=== PATIENT | male | born 1970 | race Caucasian/White ===

== ENCOUNTER 2020-01-03 10:03 | Emergency (ER) | payer OTHER ==
[~2020-01-03] VITALS: Ht 190.5 cm; Wt 154.5 kg
--- NOTE | 2020-01-03 11:40 | RAD ---
Examination: RIBS LEFT AND PA CHEST History: Fell, left-sided rib pain. Comparison/Correlation: None Findings: PA view of the chest was obtained. Initial 4 images of the left ribs were also provided. Heart size and pulmonary vasculature normal. No infiltrate or significant pleural effusion. No pneumothorax. Left ribs are intact with no fracture or bony destructive findings. Impression: No infiltrate. Left ribs are intact. Electronically signed by: Alexandru Matthew MD (01/03/2020 11:37 AM) [id number]
[2020-01-03 11:41] VITALS: BP 156/107
--- NOTE | 2020-01-03 11:42 | RAD ---
Examination: ELBOW LEFT 3V History: Fall, pain Comparison/Correlation: None Findings: Total of 3 images of the left elbow were obtained. Positioning is suboptimal due to the patient's condition. True 90 degree flexed lateral view was not provided. No findings to suggest elbow joint effusion however. No fat-pad displacement delineated. No significant degenerative change with patient's age. Bone mineralization is adequate in appearance. Impression: No fracture or bone destruction. Consider interval follow-up if fracture is a persistent concern. Electronically signed by: Alexandru Matthew MD (01/03/2020 11:38 AM) [id number]
[2020-01-03] MEDS ORDERED: NAPROXEN 500 MG TABLET PO STA (11:48)
[2020-01-03] MEDS ORDERED: diazePAM 5 MG TABLET PO ONE (12:00)
[2020-01-03] MEDS ORDERED: HYDROcodone/APAP 5/325MG 1 TAB TABLET PO ONE (12:00)
[2020-01-03] MEDS ORDERED: DIPHTH,PERTUSS(ACELL),TET TOX 0.5 ML DISP.SYRIN. VAX IM ONE (12:00)
[2020-01-03] MEDS ORDERED: DICL50TA2 PO (12:11)
[2020-01-03] MEDS ORDERED: CYCL10TA2 PO (12:11)
[2020-01-03] MEDS ORDERED: HYDR-3164 PO (12:11)
--- NOTE | 2020-01-03 12:12 | PHYS DOC ---
Past Medical History Past Medical History: No Pertinent History Past Surgical History: No Surgical History Smoking Status: Never Smoker Alcohol Use: None Adult General Chief Complaint Chief Complaint: RIB PAIN HPI HPI Patient is a 49 year old male with no significant medical history who presents to the ED today complaining of 10 out of 10 sharp constant posterior rib pain that began after falling. Patient reports working for [employer], he states he was going down some steps when he slipped on ice on the last step and fell hitting his back ribs on the staircase. Patient denies any loss of consciousness, denies hitting his head on the ground. Denies any neck pain or back pain. Review of Systems Review of Systems Constitutional: Denies fever or chills [] Eyes: Denies change in visual acuity, redness, or eye pain [] HENT: Denies nasal congestion or sore throat [] Respiratory: Reports left posterior rib pain. Denies cough or shortness of breath [] Cardiovascular: No additional information not addressed in HPI [] GI: Denies abdominal pain, nausea, vomiting, bloody stools or diarrhea [] : Denies dysuria or hematuria [] Musculoskeletal: Reports left elbow pain. Denies back pain Integument: Denies rash or skin lesions [] Neurologic: Denies headache, focal weakness or sensory changes [] All other systems were reviewed and found to be within normal limits, except as documented in this note. Current Medications Current Medications Current Medications Medications (Trade) Dose Ordered Sig/[facility] Start Time Stop Time Status Last Admin Dose Admin Acetaminophen/ Hydrocodone Bitart (Lortab 5/325) 2 tab 1X ONCE 01/03/20 12:00 2 12:01 UNV Diazepam (Valium) 5 mg 1X ONCE 01/03/20 12:00 01/03/20 12:01 UNV Diphtheria/ Tetanus/Acell Pertussis (Boostrix) 0.5 ml ONCE ONCE 01/03/20 12:00 01/03/20 12:01 UNV Naproxen (Naprosyn) 500 mg 1X STAT 01/03/20 11:48 01/03/20 11:49 UNV Physical Exam Physical Exam Constitutional: Well developed, well nourished, no acute distress, non-toxic appearance. [] HENT: Normocephalic, atraumatic, bilateral external ears normal, oropharynx moist, no oral exudates, nose normal. [] Eyes: PERRLA, EOMI, conjunctiva normal, no discharge. [] Neck: Normal range of motion, no tenderness, supple, no stridor. [] Cardiovascular:Heart rate regular rhythm, no murmur [] Lungs & Thorax: Bruising noted on the left posterior mid ribs with tenderness to the region. Bilateral breath sounds clear to auscultation [] Abdomen: Bowel sounds normal, soft, no tenderness, no masses, no pulsatile masses. [] Skin: Warm, dry, no erythema, no rash. [] Back: No tenderness, no CVA tenderness. [] Extremities: Left elbow with no obvious deformity. Bruising noted on the left olecranon process. Full range of motion to the left elbow. Adequate radial, medial, ulnar sensation to the left upper extremity. +2 left radial pulse. Cap refill less than 2 seconds the left and goes. Neurologic: Alert and oriented X 3, normal motor function, normal sensory function, no focal deficits noted. [] Psychologic: Affect normal, judgement normal, mood normal. [] Current Patient Data Vital Signs Vital Signs Date Time Temp Pulse Resp B/P (MAP) Pulse Ox O2 Delivery O2 Flow Rate FiO2 01/03/20 11:41 98.0 98 16 156/107 (123) 95 Room Air 98.0 EKG EKG [] Radiology/Procedures Radiology/Procedures []PROCEDURE: ELBOW LEFT 3V Examination: ELBOW LEFT 3V History: Fall, pain Comparison/Correlation: None Findings: Total of 3 images of the left elbow were obtained. Positioning is suboptimal due to the patient's condition. True 90 degree flexed lateral view was not provided. No findings to suggest elbow joint effusion however. No fat-pad displacement delineated. No significant degenerative change with patient's age. Bone mineralization is adequate in appearance. Impression: No fracture or bone destruction. Consider interval follow-up if fracture is a persistent concern. Electronically signed by: Naty Donato MD (01/03/2020 11:38 AM) [id number] DICTATED and SIGNED BY: NATY DONATO MD DATE: 01/03/20 1138 PROCEDURE: RIBS LEFT AND PA CHEST Examination: RIBS LEFT AND PA CHEST History: Fell, left-sided rib pain. Comparison/Correlation: None Findings: PA view of the chest was obtained. Initial 4 images of the left ribs were also provided. Heart size and pulmonary vasculature normal. No infiltrate or significant pleural effusion. No pneumothorax. Left ribs are intact with no fracture or bony destructive findings. Impression: No infiltrate. Left ribs are intact. Electronically signed by: Naty Donato MD (01/03/2020 11:37 AM) [id number] DICTATED and SIGNED BY: NATY DONATO MD DATE: 01/03/20 1137 Course & Med Decision Making Course & Med Decision Making Pertinent Labs and Imaging studies reviewed. (See chart for details) This is a 49-year-old male patient presenting to the ED today with left elbow pain and left posterior rib pain status post falling down one step. No loss of consciousness. Left rib x-rays including PA chest and left elbow x-rays interpreted by radiologist are negative for any acute findings. Discharged to home. Ice elevation encouraged. Deep breaths encouraged. Follow-up with primary care doctor workderian [place]in in one week if symptoms persist. Tetanus updated. Dragon Disclaimer Dragon Disclaimer This electronic medical record was generated, in whole or in part, using a voice recognition dictation system. Departure Departure Impression: Primary Impression: Fall Additional Impressions: Contusion of rib on left side Left elbow contusion Disposition: 01 HOME, SELF-CARE Condition: STABLE Referrals: NO PCP (PCP) follow up with your doctor or workman comp next week Patient Instructions: Fall Prevention and Home Safety, [id number], Rib Contusion Additional Instructions: You were evaluated in the emergency for left rib pain as well as left elbow x- rays. X-rays of the left elbow, left ribs xrays including chest x-ray were negative for any acute findings. Try to take deep breaths 10 times every hour while awake. Apply ice and elevate the affected areas. Follow-up with your own doctor in 1-2 weeks Scripts Diclofenac Potassium (DICLOFENAC POTASSIUM) 50 Mg Tablet 1 TAB PO BID PRN for PAIN, #20 TAB Prov: MUTUNGA,SAMINA NURSE ORTHOPEDIC 01/03/20 Cyclobenzaprine Hcl (CYCLOBENZAPRINE HCL) 10 Mg Tablet 1 TAB PO TID, #30 TAB Prov: MUTUNGA,SAMINA NURSE ORTHOPEDIC 20 Hydrocodone/Apap 5-325 (NORCO 5-325 TABLET) 1 Each Tablet 1 TAB PO Q6-8HRS PRN for PAIN, #12 TAB Prov: MUTUNGA,SAMINA NURSE ORTHOPEDIC 01/03/20 Problem Qualifiers Primary Impression: Fall Encounter type: initial encounter Qualified Codes: W19.XXXA - Unspecified fall, initial encounter Additional Impressions: Contusion of rib on left side Encounter type: initial encounter Qualified Codes: S20.212A - Contusion of left front wall of thorax, initial encounter Left elbow contusion Encounter type: initial encounter Qualified Codes: S50.02XA - Contusion of left elbow, initial encounter SAMINA YOUNG NURSE ORTHOPEDIC Jan 03, 2020 12:11
== END 2020-01-03 12:29 | disposition home or self-care (01) ==
LOC: ER 10:03
DX: S20.212A Contusion of left front wall of thorax, initial encounter (principal); S50.02XA Contusion of left elbow, initial encounter; W00.0XXA Fall on same level due to ice and snow, initial encounter; Y93.89 Activity, other specified; Y92.89 Other specified places as the place of occurrence of the external cause; Y99.8 Other external cause status
CPT/HCPCS: 71101; 73080; 90471; 90715; 99284